=== PATIENT | female | born 1945 ===

== ENCOUNTER → 2020-03-23 15:56 | Outpatient (CLI) | payer MEDICARE, OTHER, SELFPAY ==
--- NOTE | 2020-03-23 | DI.ECHO.S_ITS ---
[facility] +---------+ : : [address] : : : : [id number] : : : : Phone: [phone]+ Echocardiogram Report + + :Name: KEYON MAYFIELD I Study Date: 03/23/2020 Height: 62 in : :[facility] Weight: 154 lb : : Gender: Female BSA: 1.7 m2 : :: 1945 Age: 74 yrs BP: 120/74 mmHg: :Reason For Study: HYPERTENSION : :Ordering Physician: CRISTIAN, : :JOSEFINA Performed By: Jena Kaplan : :Referring: JOSEFINA FOSTER L : + + Interpretation Summary The left ventricle is normal in size. The ejection fraction is estimated to be 55-60%. The right ventricle is normal in size and function. No significant valvular pathology seen. Procedure: A two-dimensional transthoracic echocardiogram with color flow and Doppler was performed. The study quality was technically adequate. There is no prior echocardiogram noted for this patient. The patient was in sinus rhythm with heart rates between 55-62 bpm during the exam. Left Ventricle: The left ventricle is normal in size. Proximal septal thickening is noted. There is no thrombus. The ejection fraction is estimated to be 55-60%. There are no focal wall motion abnormalities. Diastolic parameters suggest a relaxation abnormality of the left ventricle, consistent with probable normal filling pressures. Right Ventricle: The right ventricle is normal in size and function. Atria: Both atria are normal in size. There is no Doppler evidence for an interatrial shunt. Mitral Valve: There is mild mitral annular calcification. There is trace mitral regurgitation. Aortic Valve: The aortic valve is trileaflet. The aortic valve opens well. There is no aortic valve stenosis. There is trace aortic regurgitation. Tricuspid Valve: The tricuspid valve is normal in structure and function. There is trace tricuspid regurgitation. Pulmonary artery pressures cannot be estimated because of the lack of a measurable TR jet velocity but the IVC suggests a CVP of around 3 mmHg. Pulmonic Valve: The pulmonic valve is not well visualized. There is no pulmonic valvular regurgitation. Great Vessels: The aortic root is normal size. The ascending aorta is at the upper limits of normal in size. The IVC is of normal diameter and collapses greater than 50% with a sniff. This suggests a low right atrial pressure of 3 mm Hg. Pericardium/ Pleura There is no pericardial effusion. There is an anterior echo-free space consistent with a fat pad. There is no pleural effusion. MMode/2D Measurements & Calculations LVIDd: 4.1 cm LVOT diam: 2.0 cm LVIDs: 2.9 cm Ao root diam: 3.2 cm FS: 30.2 % asc Aorta Diam: 3.4 cm IVSd: 0.67 cm Ao Arch Diam (Prox Trans): 2.3 cm LVPWd: 0.83 cm LV fleming. diameter/BSA (cm/m^2): 2.4 LV sys. diameter/BSA (cm/m^2): 1.7 LA A2 area: 12.4 cm2 RA long axis: 4.1 cm LA A4 area: 11.8 cm2 RA area: 11.5 cm2 LA length (vol): 4.6 cm RA vol: 27.3 ml LA vol: 27.3 ml RA : 16.0 ml/m2 LA vol index: 15.9 ml/m2 IVC diam: 1.2 cm RVD1 (basal): 3.3 cm TAPSE: 1.7 cm Doppler Measurements & Calculations Ao V2 max: 110.7 cm/sec LVOT Max Kameron: 90.6 cm/sec Ao V2 mean: 78.9 cm/sec LV V1 max P.3 mmHg Ao max P.9 mmHg LV V1 VTI: 20.1 cm Ao mean P.8 mmHg SHAGUFTA(I,D): 2.7 cm2 Ao V2 VTI: 24.3 cm SHAGUFTA(V,D): 2.6 cm2 sev ratio: 0.83 SHAGUFTA indexed to BSA (cm^2/m^2): 1.6 MV E max kameron: 61.4 cm/sec PA V2 max: 66.8 cm/sec MV A max kameron: 79.0 cm/sec PA V2 mean: 41.2 cm/sec MV E/A: 0.78 PA mean P.81 mmHg Med Peak E' Kameron: 5.7 cm/sec PA pr(Accel): 25.9 mmHg E/E' med: 10.7 Lat Peak E' Kameron: 7.6 cm/sec E/E' lat: 8.1 E/e' average: 9.4 MV dec time: 0.29 sec SV(LVOT): 64.6 ml Reading Physician:05:31 PM
== END ==
PROVIDERS: Family Provider Family Medicine; PCP Family Medicine; Referring Provider Family Medicine; Visit Provider Family Medicine
DX: I10 Essential (primary) hypertension (principal)
CPT/HCPCS: 93306

== ENCOUNTER → 2020-10-14 09:49 | Outpatient (CLI) | payer MEDICARE, OTHER, SELFPAY ==
[2020-10-14 11:19] LABS: COVID19 -Nasal RAPID Negative (Negative)
== END ==
PROVIDERS: Family Provider Family Medicine; PCP Family Medicine; Visit Provider Surgery
DX: Z20.822 Contact with and (suspected) exposure to COVID-19 (principal)
CPT/HCPCS: 87635; C9803

== ENCOUNTER 2020-10-17 13:25 | Day surgery (SDC) | payer MEDICARE, OTHER, SELFPAY ==
[2020-10-14 08:22] VITALS: BMI 29.6
--- NOTE | 2020-10-14 15:51 | SUR.PREOP ---
Spoke with patients daughter Estefania regarding her mothers diabetic instructions. She stated that she was hoping for an early appt to avoid her mothers blood sugars from going low from lack of nutrition. She told me she needs to eat approx q4hrs to keep her sugars stable and to keep herself from becoming physically ill. After contacting Malgorzata with [facility], it was decided that pt should check her BS first thing in the morning. If she was low, 4 ounces of clear juice such as apple or cranberry may be taken. She should then recheck her BS in 15 mins if it is stable then do nothing more. 2 hours prior to her scheduled procedure time, she should recheck her blood sugar again. If she is low, she may take another 4 ounces of clear juice as recommended above. If at anytime her BS becomes unstable before coming to her procedure, she should call us for further instructions. Estefania understood this plan and will monitor her other closely
[2020-10-17] VITALS (8 sets, daily range): BP systolic 124–144; BP diastolic 66–75; PULSE 55–74; RESP 12–16; TEMP 36.3–36.4; O2SAT 96–99; BMI 29.6
--- NOTE | 2020-10-17 | PATH_ITS ---
[facility] Accession Number: [id number] . 01 Material submitted: . breast - LEFT BREAST CYST . 01 Diagnosis: Left Breast, Excision: Epidermal inclusion cyst with evidence of prior rupture. MRV 10/20/2020 0945 Local . 01 Electronically signed: . Sam Cheema MD, Dermatopathologist NPI- [id number] . 01 Gross description: . LEFT BREAST CYST: Received in formalin is 1 fragment of landry soft tissue measuring 1.6 x 1.1 x 1.2 cm. Tissue is inked. Specimen is sectioned and submitted in used equipment sales representative sections in 1 cassette. /HUYEN 10/18/2020 2247 Local . 01 Pathologist provided ICD-10: L72.0 . 01 CPT . 384454 Performed at: 01 [facility] [address] [place] [address], [place], [place] [id number] MD Murtaza Golden MD Phone: [phone]
[2020-10-17] MEDS: LACTATED RINGERS 1,000 ML 100 ML IV (14:21)
--- NOTE | 2020-10-17 16:13 | PM.PREOP ---
Pre-operative Note COVID-19 COVID-19 status: Negative Result date/Date tested (Pos, Neg/Pending): 10/14/20 Interval Note History & Physical reviewed/Exam performed by Physician: Yes Changes to H&P: No
[2020-10-17] MEDS: CEFAZOLIN 1 GM VIAL 2 GM IV (16:25)
--- NOTE | 2020-10-17 16:39 | SUR.OPER ---
Supine on padded OR bed, head on pillow, arms secured on padded arm boards at <90 degrees abduction, legs uncrossed, safety belt at thigh, tape over blanket over lower legs.
[2020-10-17] MEDS: BUPIVACAINE 0.5% W/ EPI (PF) 30 ML VIAL INJ (16:46)
--- NOTE | 2020-10-17 17:13 | PM.OP.1 ---
Operative Date/Time/Diagnoses Date of procedure: 10/17/20 Time of procedure: 17:13 Pre-op diagnosis: left breast cyst Post-op diagnosis: same Procedure & Clinicians Procedure: Excision of left breast cyst Same procedure as scheduled: Yes Indications: Symptomatic left breast cyst Surgeon: Candy Clemons Anesthesia Type: General Operative Notes Findings: Left breast cyst consistent with sebaceous cyst Specimen(s): other (breast cyst) Estimated Blood Loss (mL): 1 Procedure in detail: The patient was brought into the OR and placed supine on the OR table. Sequential compression devices were placed on both legs and turned on. General anesthesia was induced and the patient was intubated by the anesthesiologist. Appropriate perioperative antibiotics were given. The left chest and axilla were prepped and draped in sterile fashion. Surgical time out was performed. Local anesthetic was infiltrated into the skin, and a 6cm modified elliptical incision was made encompasing the involved skin. Dissection was carried down through the dermis and the cyst capsule was dissected out. The involved skin was debrided as it was not well supplied vascularly. About a 2mm x 4mm portion of skin was removed. The specimen was passed off the table for pathology. The wound was irrigated and additional local anesthetic was injected for a total of 15mL's for the case using 0.5% Marcaine with epi. The skin was closed with interrupted 3-0 Vicryl, and subcuticular 4-0 Monocryl, and sealed with dermabond. The patient was then awakened from anesthesia and extubated. Needle sponge and instrument counts were correct x 2. A breast binder was placed on the patient with extra padding over the breast wound using 4x4 gauze. The patient was transferred to the PACU in stable condition. Complications: none Post-operative Condition: stable Disposition: PACU
== END 2020-10-17 18:02 | disposition home or self-care (01) ==
PROVIDERS: Family Provider Family Medicine; PCP Family Medicine; Referring Provider Surgery; Visit Provider Surgery
PROC: (CPT 19301; principal; 2020-10-17 14:45)
DX: L72.0 Epidermal cyst (principal); Z86.73 Personal history of transient ischemic attack (TIA), and cerebral infarction without residual deficits; E11.9 Type 2 diabetes mellitus without complications; Z79.84 Long term (current) use of oral hypoglycemic drugs
CPT/HCPCS: 19120; 82962; J0690; J1100; J2405; J2704; J3010

== ENCOUNTER → 2022-02-28 12:57 | Outpatient (CLI) | payer MEDICARE, OTHER, SELFPAY ==
--- NOTE | 2022-02-28 | DI.RAD.S_ITS ---
PROCEDURE: XR KNEE RT 3V INDICATIONS: pain in right knee TECHNIQUE: 3 views of the knee were acquired. COMPARISON: None. FINDINGS: Bones: No fractures or dislocations. Btmo-jy-mgvnepkn tricompartmental osteoarthritis is seen more prominent in medial femoral tibial compartment with joint space narrowing, subchondral sclerosis and marginal osteophyte formation. No suspicious bony lesions. Soft tissues: Small to moderate suprapatellar joint effusion is seen. No suspicious soft tissue calcifications. IMPRESSION: Lkih-br-xpuquesu tricompartmental osteoarthritis more prominent in medial femoral tibial compartment. No fracture or dislocation. Small to moderate joint effusion. Dictated by: Kev Jane M.D. on 02/28/2022 at 15:08 Approved by: Kev Jane M.D. on 02/28/2022 at 15:09
== END ==
PROVIDERS: Family Provider Family Medicine; PCP Family Medicine; Referring Provider Family Medicine; Visit Provider Family Medicine
DX: M25.561 Pain in right knee (principal); M17.11 Unilateral primary osteoarthritis, right knee; M25.461 Effusion, right knee
CPT/HCPCS: 73562

== ENCOUNTER → 2022-06-22 12:44 | Outpatient (CLI) | payer MEDICARE, OTHER, SELFPAY ==
--- NOTE | 2022-06-22 | DI.MRI.S_ITS ---
PROCEDURE: MR KNEE RT WO CON INDICATIONS: Unilateral primary osteoarthritis, right knee TECHNIQUE: Noncontrast sagittal PD fast spin echo and T2 fast spin echo with fat saturation, sagittal 3-D FLASH with fat saturation; coronal T1 spin echo and PD fast spin echo with fat saturation, and axial PD fast spin echo with fat saturation through the knee. COMPARISON: [facility], CR, XR KNEE RT 3V, 02/28/2022, 13:03. FINDINGS: Image quality: Excellent. Anterior Cruciate Ligament: Intact. Posterior Cruciate Ligament: Intact. Medial Collateral Ligament: Intact. Lateral Collateral Ligament: Intact. Medial Meniscus: Intact. Lateral Meniscus: There is horizontal oblique tearing of the body of the lateral meniscus extending to the inner third of the tibial articular surface and free edge margin. A small lateral parameniscal cyst measures up to 9 x 3 x 8 mm. Medial and Lateral Tendons: The semimembranosus tendon insertions and meniscocapsular junction appear intact. Visualized portions of the pes anserinus tendons appear normal. No abnormal bursal fluid. The long and short heads of the biceps femoris tendon appear intact. The popliteus tendon appears intact. No signs of posterolateral corner injury. Iliotibial band appears normal. Anterior Structures: Patella pavel. The distal quadriceps tendon is intact. No patellar subluxation. Moderate edema is seen at the superolateral aspect of Hoffa's fat pad. No femoral trochlear dysplasia or ventral trochlear prominence. Bones: No acute trabecular bone injury or fracture. Medial Femorotibial Cartilage: Mild partial-thickness cartilage thinning is seen in the weight-bearing portion of the medial femorotibial compartment. Lateral Femorotibial Cartilage: High-grade partial-thickness cartilage irregularity is seen in the weight-bearing portion of the lateral femorotibial compartment with marginal osteophyte formation. Patellofemoral Cartilage: Moderate partial-thickness cartilage irregularity is seen at the median ridge of the patella. There is at least high-grade partial-thickness cartilage loss at the trochlear groove. Soft Tissues: There is a small joint effusion. A small medial popliteal cyst is seen. There is trace fluid tracking along the popliteus tendon sheath. The musculature surrounding the knee is normal in bulk. IMPRESSION: 1. Horizontal oblique tear of the body of the lateral meniscus extending to the inner third of the tibial articular surface and the free edge margin. A small 9 mm parameniscal cyst is noted. 2. 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 There is grade 2-3 chondromalacia in the anterior compartment and mild grade 2 cartilage thinning in the medial compartment. 3. No acute trabecular bone injury. Cruciate and collateral ligaments are intact. 4. Patella pavel. Moderate edema at the superolateral aspect of Hoffa's fat pad can be seen in the setting of lateral femoral condyle-patellar tendon friction syndrome. 5. Small joint effusion. Small medial popliteal cyst. Approved by: Manpreet De Guzman M.D. on 06/22/2022 at 15:11
== END ==
PROVIDERS: Family Provider Family Medicine; PCP Family Medicine; Referring Provider Orthopaedic Surgery; Visit Provider Orthopaedic Surgery
DX: S83.281A Other tear of lateral meniscus, current injury, right knee, initial encounter (principal); M17.11 Unilateral primary osteoarthritis, right knee; M94.261 Chondromalacia, right knee; M25.461 Effusion, right knee; M71.21 Synovial cyst of popliteal space [Baker], right knee; M22.8X1 Other disorders of patella, right knee
CPT/HCPCS: 73721

== ENCOUNTER 2022-08-27 12:01 | Emergency (ER) | payer MEDICARE, OTHER, SELFPAY ==
[2022-08-27] VITALS (11 sets, daily range): BP systolic 123–141; BP diastolic 61–70; PULSE 58–68; RESP 15–24; TEMP 36.4; O2SAT 95–98; BMI 29.0
--- NOTE | 2022-08-27 12:32 | DI.RAD.S_ITS ---
PROCEDURE: XR CHEST 1V INDICATIONS: Possible stroke TECHNIQUE: One view of the chest was acquired. COMPARISON: None. FINDINGS: Surgical changes and devices: None. Lungs and pleura: Eventration of the right hemidiaphragm. Lung volumes are slightly diminished. Minimal streaky bibasilar opacities favored to represent atelectasis. No focal consolidation. No pneumothorax or pleural effusion. Mediastinum: Mediastinal contours appear normal. Heart size is normal. Bones and chest wall: No suspicious bony lesions. Overlying soft tissues appear unremarkable. IMPRESSION: Mildly diminished lung volumes with streaky bibasilar opacities which are favored to represent atelectasis. No focal consolidations. Otherwise, no acute cardiopulmonary abnormalities. Dictated by: Ra Rosenberg M.D. on 08/27/2022 at 13:21 Approved by: Ra Rosenberg M.D. on 08/27/2022 at 13:24
--- NOTE | 2022-08-27 12:32 | DI.CT.S_ITS ---
PROCEDURE: CT STROKE INDICATIONS: Positive BE-FAST, Stroke symptoms TECHNIQUE: Noncontrast 4.5 mm thick angled axial sections acquired from the foramen magnum to the vertex, with coronal reformats. For radiation dose reduction, the following was used: automated exposure control, adjustment of mA and/or kV according to patient size. COMPARISON: None. FINDINGS: Image quality: Good CSF spaces: There is dilation of the left temporal horn and occipital horn adjacent to encephalomalacia. Volume: Vascular calcifications. Periventricular white matter disease is commonly seen with chronic microangiopathy. Volume loss is present. These findings are efpu-pz-fhpkydcm Brain: Left posterior hemispheric encephalomalacia. No acute hematoma. Craniofacial structures: No displaced fracture. Sinuses are clear. Orbits are intact. IMPRESSION: No acute hemorrhage. Suspected old infarct or other injury to the left occipital and parietal regions. Consider MRI and CTA to further evaluate for infarct if necessary. Report called at timestamp below to ED. Dictated by: Simon Cardozo M.D. on 08/27/2022 at 13:03 Approved by: Simon Cardozo M.D. on 08/27/2022 at 13:06
--- NOTE | 2022-08-27 12:39 | DI.CT.S_ITS ---
PROCEDURE: CT ANGIO HEAD AND NECK INDICATIONS: ? stroke symptoms. TECHNIQUE: Noncontrast images were performed earlier in the day and not repeated. After the administration of intravenous contrast, 1 mm thick sections acquired from just above the aortic arch through the [place]. Post-contrast 4.5 mm thick sections then re-acquired from the foramen magnum to the vertex. 3-dimensional hglhuna-sjnermkot-imefhrkovk (MIP) and/or volume rendering reformats were acquired of the central intracranial vasculature and neck separately. For radiation dose reduction, the following was used: automated exposure control, adjustment of mA and/or kV according to patient size. COMPARISON: [facility], CR, XR CHEST 1V, 08/27/2022, 12:42. [facility], CT, CT STROKE, 08/27/2022, 12:43. FINDINGS: Image quality: Excellent. BRAIN: CSF spaces: Ventricles are normal in size and shape. Basal cisterns are patent. No extra-axial fluid collections. Brain: No midline shift. No intracranial bleeds or masses. Griffin-white matter interface appears intact. A broad, remote left MCA infarction can be seen. No abnormal enhancement can be seen within this region. Skull and face: Calvarium and facial bones appear intact, without suspicious lesions. Orbits appear normal. Sinuses: Sinuses and mastoids are clear. HEAD CT ANGIOGRAPHY: Anterior circulation: Intracranial internal carotid arteries are normal in size and flow. The flow within the paired anterior cerebral arteries is normal and symmetric. The flow within the middle cerebral arteries is within normal limits, given the prior posterior left MCA infarction. The anterior communicating artery is seen. No aneurysms are seen. Posterior circulation: Note is made of bilateral type origins of the posterior cerebral arteries, with an associated diminutive basilar artery. The flow within the posterior cerebral arteries is normal and symmetric. The distal vertebral arteries are overall small in size, yet otherwise unremarkable. No aneurysms are seen. NECK CT ANGIOGRAPHY: Carotid system: The origins of the common carotid arteries appear patent. The common carotid arteries demonstrate normal caliber and courses. The bifurcation regions are both widely patent. The internal carotid arteries demonstrate normal calibers and courses. Posterior circulation: The origins of the vertebral arteries both appear widely patent. The more superior extracranial portions of both vertebral arteries also demonstrate normal courses and calibers. The left vertebral artery is dominant to the right. Soft tissues: Visualized neck soft tissues demonstrate no suspicious abnormalities. Generalized irregularity can be seen of the thyroid. Bones: No suspicious bony lesions. Visualized cervical spine appears normally aligned. Moderate cervical spine degenerative change can be seen. A T2 vertebral body hemangioma is incidentally noted, as on series 8, image 105 IMPRESSION: No significant intracranial arterial abnormality is seen. Within the arteries of the neck, no hemodynamically significant stenosis can be seen. 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 Additional findings: Nwtido-ue-Ihovrx developmental anomalies Moderate cervical spine degenerative change T2 vertebral body hemangioma, benign Thyroid irregularity, without lesion requiring follow-up Any quantitative measurements of stenosis were performed using NASCET criteria. Dictated by: Julius Corona M.D. on 08/27/2022 at 12:15 Approved by: Julius Corona M.D. on 08/27/2022 at 12:20
[2022-08-27 12:54] LABS: Add Manual Diff / Slide Review NO; Basophils Absolute Auto 0 /uL (0-100); Basophils Percent Auto 0.6 % (0-2); Eosinophils Absolute Auto 100 /uL (0-450); Eosinophils Percent Auto 1.2 % (2-4); Hematocrit 42.7 % (36-46); Hemoglobin 14.3 g/dL (12.0-16.0); Lymphocytes Absolute Auto 2000 /uL (1100-4500); Lymphocytes Percent Auto 38.4 % (25-40); Mean Corpuscular HGB Conc 33.6 % (30-36); Mean Corpuscular Hemoglobin 30.3 PG (26-34); Mean Corpuscular Volume 90.3 fL (80-100); Monocytes Absolute Auto 400 /uL (0-900); Monocytes Percent Auto 6.6 % (3-14); Neutrophils Absolute Auto 2800 /uL (1500-7000); Neutrophils Percent Auto 53.2 % (50-75); Platelet Count 214 X10^3/uL (150-400); Red Blood Cell Count 4.72 X10^6/uL (4.0-5.2); Red Cell Distribution Width 13.9 % (11.6-14.8); White Blood Cell Count 5.3 X10^3/uL (4.5-11.0)
[2022-08-27 13:04] LABS: Prothrombin Time 11.2 SECONDS (10.1-12.7)
[2022-08-27 13:07] LABS: PTT Partial Thromboplastin Tim 29 SECONDS (26-36)
[2022-08-27 13:09] LABS: Alanine Aminotransferase 23 IU/L (<35); Albumin 4.1 g/dL (3.5-5.0); Albumin Globulin Ratio 1.2 (1.0-2.8); Alkaline Phosphatase 89 U/L (38-126); Aspartate Aminotransferase 30 IU/L (14-36); BUN Creatinine Ratio 15.6 (6-22); Bilirubin Total 0.6 mg/dL (0.2-1.3); Blood Urea Nitrogen 12 mg/dL (7-17); Carbon Dioxide 30 mmol/L (22-32); Chloride 105 mmol/L (98-107); Creatine Kinase 52 U/L (30-135); Estimated Glomerular Filt Rate > 60 mL/min (>60); Globulin 3.5 g/dL (1.7-4.1); Glucose 126 mg/dL (80-110); HEMOLYSIS < 15 (0-50); Magnesium 1.9 mg/dL (1.6-2.3); Potassium 3.9 mmol/L (3.4-5.1); Sodium 140 mmol/L (137-145); Total Protein 7.6 g/dL (6.3-8.2)
[2022-08-27 13:21] LABS: Troponin I < 0.012 ng/mL (0.01-0.034)
--- NOTE | 2022-08-27 13:52 | ED.NEUROSD ---
HPI - Neuro Symptoms/Deficit General Chief Complaint: Neuro Symptoms/Deficit Stated Complaint: pressure in head,memory loss,prior strokesx2 Time Seen by Provider: 08/27/22 12:39 Source: patient, family and old records reviewed Mode of arrival: Family Vehicle Limitations: no limitations History of Present Illness HPI Narrative: This is a 76-year-old female with prior stroke with persistent hemianopsia, diabetes, dementia, prior seizure, dyslipidemia, diabetes type 2 on aspirin 81 mg daily. Patient states that yesterday evening she bent over time she is pants on felt dizzy had some pressure in the left ear side of her head and had some left vision blurring. Patient states that the had pressure has gone away the blurred vision still present. She still has vision but just sort of blurry. She denies any eye pain. Patient states no syncope. She states she was seen at [facility] emergency department had a head CT and it was repeated they were told there might be calcium versus blood but it was stable and discharged home. She states she is noticed little bit increased weakness of her left lower extremity, she states she does have this at baseline from her prior stroke. She denies any numbness or tingling. No weakness elsewhere in her extremities, no speech changes, no chest pain, no shortness of breath, no nausea or vomiting, no diarrhea constipation or urinary symptoms. Patient aspirin daily no other anticoagulants. She states her only surgical intervention was benign cyst removed from her left breast no known drug allergies. No tobacco, alcohol or illicit. Dr. Gibbs is her primary care. They had gone to the primary care office today to set up follow-up and were told by the assistant front end manager to come to the ER. On Anticoagulants: No (81mg aspirin) Related Data Home Medications Medication Instructions Recorded Confirmed aspirin 81 mg tablet,delayed 81 mg PO DAILY 10/13/20 11/02/20 release (Adult Aspirin Regimen) cephalexin 500 mg capsule 500 mg PO BID 10/13/20 11/02/20 donepezil 5 mg tablet 5 mg PO DAILY 10/13/20 11/02/20 empagliflozin 10 mg tablet 10 mg PO DAILY 10/13/20 11/02/20 (Jardiance) levetiracetam 750 mg tablet 750 mg PO BID 10/13/20 11/02/20 levocetirizine 5 mg tablet (Xyzal) 5 mg PO DAILY 10/13/20 11/02/20 losartan 25 mg tablet 25 mg PO DAILY 10/13/20 11/02/20 pravastatin 40 mg tablet 40 mg PO DAILY 10/13/20 11/02/20 sitagliptin phos 100 mg-metformin 1 tab PO DAILY 10/13/20 11/02/20 ER 1,000 mg tablet,extend rel 24h mp (Janumet XR) Allergies Allergy/AdvReac Type Severity Reaction Status Date / Time No Known Drug Allergies Allergy Unverified 11/02/20 11:07 Review of Systems Review of Systems ROS Unobtainable: All systems reviewed & are unremarkable except as noted in HPI and below Hematologic/Lymphatic On Anticoagulants: No (81mg aspirin) Patient History Medical History Brain aneurysm Diabetes Stroke Family History Mother Heart disease Father Heart disease Stroke Brother Diabetes mellitus Sister Diabetes mellitus Gallstones Social History marital status: unknown household members: family Smoking Status: Never smoker alcohol intake: never substance use type: does not use Smoking Status: Never smoker Substance Use Type: does not use Exam Narrative Exam Narrative: GEN: well nourished, well appearing female, alert and oriented x 3, patient appears to be in mild distress. HEENT: Atraumatic, pupils are equal round reactive to light, extraocular movements are intact, no nystagmus, right hemianopsia bilaterally, nares are clear, TMs are clear with no fluid, there is no conjunctival pallor. Throat is clear without any exudates, erythema, tonsillar enlargement or uvular deviation HEART: Regular rate and rhythm without murmur, clicks, rubs. No carotid bruits, pulses are equal in upper and lower extremities LUNGS:Lungs clear to auscultation, no wheezes, rales, crackles, chest moves symmetrically ABD:bowel sounds normal, soft, non-tender, no guarding, rebound, rigidity, no masses noted, no hepatosplenomegaly :No CVA tenderness MSCL: Non-tender, no muscle atrophy, muscles strength 5/5 upper and lower extremities, patient has some slight decreased movement of the left lower extremity., full range of motion, normal gait NEURO:CN 2-12 intact, sensation normal. finger nose finger test normal, heel little test normal with right leg to little, little bit difficulty with left leg to little. SKIN: No Rash, erythema or other skin changes Initial Vital Signs Initial Vital Signs: Vital Signs Temperature 97.6 F 08/27/22 12:16 Pulse Rate 68 08/27/22 12:16 Respiratory Rate 16 08/27/22 12:16 Blood Pressure 141/63 H 08/27/22 12:16 Pulse Oximetry 97 08/27/22 12:16 Oxygen Delivery Method Room Air 08/27/22 12:16 Scores NIH Stroke Scale Level of Conciousness: Alert, keenly responsive Ask month/age: Answers both questions correctly. Open/close eyes, close hand: Performs both tasks correctly Best gaze horizontal: Normal Visual gomez: Partial hemianopia (Right bilateral) Facial palsy: Normal symetrical movement Left arm drift: No drift for full 10 sec Right arm drift: No drift for full 10 sec Left leg drift: Drifts down, not to bed Right leg drift: No drift for full 5 sec Limb ataxia: Present in one limb Sensory on face/arms/legs: Normal, no sensory loss Best language: No aphasia, normal Dysarthria: Normal Extinction or inattention: No abnormality Total NIH Stroke scale score: 3 Course Orders Ordered: ED Orders 08/27/22 12:32 CT Stroke Stat XR chest 1V Stat EKG-12 Lead Stat 08/27/22 12:38 Complete Blood Count AUTO DIFF Stat Comprehensive Metabolic Panel Stat Magnesium Stat PTT Partial Thromboplastin Joe Stat Prothrombin Time INR Stat Troponin & CK Cardiac Panel Stat 08/27/22 12:39 CT angio head and neck Stat 08/27/22 14:14 COVID19 - ADMIT (COMPUTER SYSTEMS DESIGNER swab/PCR) Stat 08/27/22 14:26 MR head/brain wo con Stat 08/27/22 15:38 Urine Microscopic Stat 08/27/22 16:02 Urine Drug Screen, Rapid Stat Discontinued Medications Ondansetron HCl (Ondansetron 4 Mg Odt) 4 mg SL NOW PRN PRN Reason: Nausea And Vomiting Ondansetron HCl (Ondansetron 4 Mg/2 Ml Inj) 4 mg IV NOW PRN PRN Reason: Nausea And Vomiting Vital Signs Vital signs: Vital Signs - 8 hr 08/27/22 12:16 08/27/22 13:36 08/27/22 13:53 Temperature 97.6 F Pulse Rate 68 59 L 58 L Respiratory Rate 16 18 18 Blood Pressure 141/63 H Pulse Oximetry 97 97 97 Oxygen Delivery Method Room Air 08/27/22 13:53 08/27/22 14:00 08/27/22 14:00 Temperature Pulse Rate 60 Respiratory Rate 23 Blood Pressure 123/64 140/70 Pulse Oximetry 98 Oxygen Delivery Method 08/27/22 14:30 08/27/22 14:30 08/27/22 15:00 Temperature Pulse Rate 60 Respiratory Rate 22 Blood Pressure 132/65 132/67 Pulse Oximetry 96 Oxygen Delivery Method 08/27/22 15:00 08/27/22 16:28 08/27/22 16:24 Temperature Pulse Rate 59 L 62 59 L Respiratory Rate 22 Blood Pressure 125/63 Pulse Oximetry 97 Oxygen Delivery Method 08/27/22 16:26 08/27/22 16:26 08/27/22 16:30 Temperature Pulse Rate 58 L Respiratory Rate 24 Blood Pressure 125/63 126/67 Pulse Oximetry 97 Oxygen Delivery Method 08/27/22 16:30 08/27/22 17:00 08/27/22 17:00 Temperature Pulse Rate 59 L 62 Respiratory Rate 15 16 Blood Pressure 125/61 Pulse Oximetry 95 95 Oxygen Delivery Method MDM - Neuro Symptoms/Deficit Lab Data 08/27/22 12:38 08/27/22 12:38 Labs: Lab Results 08/27/22 08/27/22 08/27/22 Range/Units 12:38 12:38 12:38 WBC 5.3 (4.5-11.0) X10^3/uL RBC 4.72 (4.0-5.2) X10^6/uL Hgb 14.3 (12.0-16.0) g/dL Hct 42.7 (36-46) % MCV 90.3 (80-100) fL MCH 30.3 (26-34) PG MCHC 33.6 (30-36) % RDW 13.9 (11.6-14.8) % Plt Count 214 (150-400) X10^3/uL Neut % (Auto) 53.2 (50-75) % Lymph % (Auto) 38.4 (25-40) % [place] % (Auto) 6.6 (3-14) % Eos % (Auto) 1.2 L (2-4) % Baso % (Auto) 0.6 (0-2) % Neut # (Auto) 2800 (1255-0519) /uL Lymph # (Auto) 2000 (0123-5018) /uL [place] # (Auto) 400 (0-900) /uL Eos # (Auto) 100 (0-450) /uL Baso # (Auto) 0 (0-100) /uL PT 11.2 (10.1-12.7) SECONDS INR 1.0 (0.9-1.3) APTT 29 (26-36) SECONDS Sodium 140 (137-145) mmol/L Potassium 3.9 (3.4-5.1) mmol/L Chloride 105 (98-107) mmol/L Carbon Dioxide 30 (22-32) mmol/L BUN 12 (7-17) mg/dL Creatinine 0.77 (0.52-1.04) mg/dL Estimated GFR > 60 (>60) mL/min BUN/Creatinine Ratio 15.6 (6-22) Glucose 126 H (80-110) mg/dL Calcium 9.0 (8.4-10.2) mg/dL Magnesium 1.9 (1.6-2.3) mg/dL Total Bilirubin 0.6 (0.2-1.3) mg/dL AST 30 (14-36) IU/L ALT 23 (<35) IU/L Alkaline Phosphatase 89 (38-126) U/L Total Creatine Kinase 52 (30-135) U/L CK-MB (CK-2) TNP CK-MB (CK-2) Rel Index TNP Troponin I < 0.012 (0.01-0.034) ng/mL Total Protein 7.6 (6.3-8.2) g/dL Albumin 4.1 (3.5-5.0) g/dL Globulin 3.5 (1.7-4.1) g/dL Albumin/Globulin Ratio 1.2 (1.0-2.8) Urine RBC (0-5/HPF) Urine WBC (0-5/HPF) Ur Squamous Epith Cells (0-5/HPF) Urine Bacteria (None) Ur Culture Indicated? U Opiates 300ng/mL cut (Negative) Ur Oxycodone Screen (Negative) Urine Methadone Screen (Negative) Ur Barbiturates Screen (Negative) U Tricyclic Antidepress (Negative) Ur Phencyclidine Scrn (Negative) Ur Amphetamines Screen (Negative) U Methamphetamines Scrn (Negative) Ur MDMA Scrn (Ecstasy) (Negative) U Benzodiazepines Scrn (Negative) Urine Cocaine Screen (Negative) U Marijuana (THC) Screen (Negative) SARS-CoV-2 (PCR) (Negative) 08/27/22 08/27/22 08/27/22 Range/Units 14:14 15:38 16:02 WBC (4.5-11.0) X10^3/uL RBC (4.0-5.2) X10^6/uL Hgb (12.0-16.0) g/dL Hct (36-46) % MCV (80-100) fL MCH (26-34) PG MCHC (30-36) % RDW (11.6-14.8) % Plt Count (150-400) X10^3/uL Neut % (Auto) (50-75) % Lymph % (Auto) (25-40) % [place] % (Auto) (3-14) % Eos % (Auto) (2-4) % Baso % (Auto) (0-2) % Neut # (Auto) (4814-6743) /uL Lymph # (Auto) (3180-9872) /uL [place] # (Auto) (0-900) /uL Eos # (Auto) (0-450) /uL Baso # (Auto) (0-100) /uL PT (10.1-12.7) SECONDS INR (0.9-1.3) APTT (26-36) SECONDS Sodium (137-145) mmol/L Potassium (3.4-5.1) mmol/L Chloride (98-107) mmol/L Carbon Dioxide (22-32) mmol/L BUN (7-17) mg/dL Creatinine (0.52-1.04) mg/dL Estimated GFR (>60) mL/min BUN/Creatinine Ratio (6-22) Glucose (80-110) mg/dL Calcium (8.4-10.2) mg/dL Magnesium (1.6-2.3) mg/dL Total Bilirubin (0.2-1.3) mg/dL AST (14-36) IU/L ALT (<35) IU/L Alkaline Phosphatase (38-126) U/L Total Creatine Kinase (30-135) U/L CK-MB (CK-2) CK-MB (CK-2) Rel Index Troponin I (0.01-0.034) ng/mL Total Protein (6.3-8.2) g/dL Albumin (3.5-5.0) g/dL Globulin (1.7-4.1) g/dL Albumin/Globulin Ratio (1.0-2.8) Urine RBC None seen (0-5/HPF) Urine WBC None seen (0-5/HPF) Ur Squamous Epith Cells None seen (0-5/HPF) Urine Bacteria None seen (None) Ur Culture Indicated? Cult not indicated U Opiates 300ng/mL cut Negative (Negative) Ur Oxycodone Screen Negative (Negative) Urine Methadone Screen Negative (Negative) Ur Barbiturates Screen Negative (Negative) U Tricyclic Antidepress Negative (Negative) Ur Phencyclidine Scrn Negative (Negative) Ur Amphetamines Screen Negative (Negative) U Methamphetamines Scrn Negative (Negative) Ur MDMA Scrn (Ecstasy) Negative (Negative) U Benzodiazepines Scrn Negative (Negative) Urine Cocaine Screen Negative (Negative) U Marijuana (THC) Screen Negative (Negative) SARS-CoV-2 (PCR) Negative (Negative) Urine Dip Bedside Urine Glucose 1000 mg/dl Bedside Urine Bilirubin - Negative Bedside Urine Ketone - Negative Urine Specific [place] 1.010 Bedside Urine Occult Blood +/- Bedside Urine pH 7.5 Bedside Urine Protein - Negative Bedside Urine Urobilinogen - Negative Bedside Urine Nitrite - Negative Bedside Urine Leukocytes - Negative Esterase Imaging Data CT scan - head: Radiologist's Impression: [address] [address] [address] Scan Report Signed Patient: Rafia Means I MR#: [id number] : 1945 Acct:[id number] Age/Sex: 76 / F Date of Service: 08/27/22 Loc: ED Accession Number: [id number] ?? Procedure: CT Stroke Ordering Provider: Robina West D.O. PROCEDURE:? CT STROKE ? INDICATIONS:? Positive BE-FAST, Stroke symptoms ? TECHNIQUE:? Noncontrast 4.5 mm thick angled axial sections acquired from the foramen magnum to the vertex, with coronal reformats.? For radiation dose reduction, the following was used:? automated exposure control, adjustment of mA and/or kV according to patient size.? ? COMPARISON:? None. ? FINDINGS:? Image quality:? Good ? CSF spaces:? There is dilation of the left temporal horn and occipital horn adjacent to encephalomalacia. Volume:? Vascular calcifications. Periventricular white matter disease is commonly seen with chronic microangiopathy. Volume loss is present. These findings are [id number]-[id number] ? ? Brain:? Left posterior hemispheric encephalomalacia.? No acute hematoma. ? Craniofacial structures: No displaced fracture. Sinuses are clear. Orbits are intact. ? IMPRESSION:? No acute hemorrhage.? Suspected old infarct or other injury to the left occipital and parietal regions.? Consider MRI and CTA to further evaluate for infarct if necessary. Report called at timestamp below to ED. ? Dictated by: Simon Cardozo M.D. on 08/27/2022 at 13:03 ? ? Approved by: Simon Cardozo M.D. on 08/27/2022 at 13:06?? CTA - brain/neck: Radiologist's Impression: Rafia Means I??76??F??1945 ? Allergy/Adv: No Known Drug Allergies Close Head/Neck CTA (Signed) Julius Coorna - 08/27/22 Chest X-Ray (Signed) Ra Rosenberg - 08/27/[address] (Signed) Simon Cardozo - 08/27/22 Knee MRI (Signed) Manpreet De Guzman - 06/22/22 Knee X-Ray (Signed) Kev Jane - 02/28/22 Echocardiogram Ultrasound (Signed) Joey Alicia - 03/23/20 Launch?[place] [id number] CT Scan Report Signed Patient: Rafia Means I MR#: [id number] : 1945 Acct:[id number] Age/Sex: 76 / F Date of Service: 08/27/22 Loc: ED Accession Number: [id number] ?? Procedure: CT angio head and neck Ordering Provider: Mank,Robina C D.O. PROCEDURE:? CT ANGIO HEAD AND NECK ? INDICATIONS:? ? stroke symptoms. ? TECHNIQUE:? Noncontrast images were performed earlier in the day and not repeated.? ? After the administration of intravenous contrast, 1 mm thick sections acquired from just above the aortic arch through the [place] of [place].? Post-contrast 4.5 mm thick sections then re-acquired from the foramen magnum to the vertex.? 3-dimensional ijbymek-hjscqmjrp-jdijsfvpnn (MIP) and/or volume rendering reformats were acquired of the central intracranial vasculature and neck separately. For radiation dose reduction, the following was used:? automated exposure control, adjustment of mA and/or kV according to patient size.? ? COMPARISON:? [facility], CR, XR CHEST 1V, 08/27/2022, 12:42.? [facility], CT, CT STROKE, 08/27/2022, 12:43. ? FINDINGS:? Image quality:? Excellent.? ? BRAIN:? CSF spaces:? Ventricles are normal in size and shape.? Basal cisterns are patent.? No extra-axial fluid collections.? ? Brain:? No midline shift.? No intracranial bleeds or masses.? Griffin-white matter interface appears intact.? A broad, remote left MCA infarction can be seen.? No abnormal enhancement can be seen within this region. ? Skull and face:? Calvarium and facial bones appear intact, without suspicious lesions.? Orbits appear normal.? ? Sinuses:? Sinuses and mastoids are clear.? ? HEAD CT ANGIOGRAPHY:? Anterior circulation:? Intracranial internal carotid arteries are normal in size and flow.? The flow within the paired anterior cerebral arteries is normal and symmetric.? The flow within the middle cerebral arteries is within normal limits, given the prior posterior left MCA infarction.? The anterior communicating artery is seen.? No aneurysms are seen.? ? Posterior circulation:? Note is made of bilateral type origins of the posterior cerebral arteries, with an associated diminutive basilar artery.? The flow within the posterior cerebral arteries is normal and symmetric.? The distal vertebral arteries are overall small in size, yet otherwise unremarkable.? No aneurysms are seen.? ? NECK CT ANGIOGRAPHY:? Carotid system:? The origins of the common carotid arteries appear patent.? The common carotid arteries demonstrate normal caliber and courses.? The bifurcation regions are both widely patent.? The internal carotid arteries demonstrate normal calibers and courses.? ? Posterior circulation:? The origins of the vertebral arteries both appear widely patent.? The more superior extracranial portions of both vertebral arteries also demonstrate normal courses and calibers.? The left vertebral artery is dominant to the right. ? Soft tissues:? Visualized neck soft tissues demonstrate no suspicious abnormalities.? Generalized irregularity can be seen of the thyroid. ? Bones:? No suspicious bony lesions.? Visualized cervical spine appears normally aligned.? Moderate cervical spine degenerative change can be seen.? A T2 vertebral body hemangioma is incidentally noted, as on series 8, image 105 ? ? IMPRESSION:? No significant intracranial arterial abnormality is seen.? ? Within the arteries of the neck, no hemodynamically significant stenosis can be seen. ? ? 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 ? ? Additional findings:? Jwbheh-no-Xapogc developmental anomalies Moderate cervical spine degenerative change T2 vertebral body hemangioma, benign Thyroid irregularity, without lesion requiring follow-up ? Any quantitative measurements of stenosis were performed using NASCET criteria.? ? ? Dictated by: Julius Corona M.D. on 08/27/2022 at 12:15 ? ? Approved by: Julius Corona M.D. on 08/27/2022 at 12:20?? Chest x-ray: Radiologist's Impression: [place] [address] XRay Report Signed Patient: Rafia Means I MR#: [id number] : 1945 Acct:[id number] Age/Sex: 76 / F Date of Service: 08/27/22 Loc: ED Accession Number: [id number] ?? Procedure: XR chest 1V Ordering Provider: Robina West D.O. PROCEDURE:? XR CHEST 1V ? INDICATIONS:? Possible stroke ? TECHNIQUE:? One view of the chest was acquired.? ? COMPARISON:? None. ? FINDINGS:? ? Surgical changes and devices:? None.? ? Lungs and pleura:? Eventration of the right hemidiaphragm.? Lung volumes are slightly diminished.? Minimal streaky bibasilar opacities favored to represent atelectasis.? No focal consolidation.? No pneumothorax or pleural effusion. ? Mediastinum:? Mediastinal contours appear normal.? Heart size is normal.? ? Bones and chest wall:? No suspicious bony lesions.? Overlying soft tissues appear unremarkable.? ? IMPRESSION:? Mildly diminished lung volumes with streaky bibasilar opacities which are favored to represent atelectasis. No focal consolidations.? Otherwise, no acute cardiopulmonary abnormalities.? ? Dictated by: Ra Rosenberg M.D. on 08/27/2022 at 13:21 ? ? Approved by: Ra Rosenberg M.D. on 08/27/2022 at 13:24?? MRI brain: Radiologist's Impression: Rafia Means I??76??F??1945 ? Allergy/Adv: No Known Drug Allergies Close Brain MRI (Signed) [place] - 08/27/22 Head/Neck CTA (Signed) Silvio Coronasse - 08/27/22 Chest X-Ray (Signed) Ra Rosenberg - 08/27/[address] (Signed) Simon Cardozo - 08/27/22 Knee MRI (Signed) Manpreet De Guzman - 06/22/22 Knee X-Ray (Signed) Kev Jane - 02/28/22 Echocardiogram Ultrasound (Signed) Joey Alicia - 03/23/20 Launch?[place] [address] Magnetic Resonance Report Signed Patient: Rafia Means I MR#: [id number] : 1945 Acct:[id number] Age/Sex: 76 / F Date of Service: 08/27/22 Loc: ED Accession Number: [id number] ?? Procedure: MR head/brain wo con Ordering Provider: Robina West D.O. PROCEDURE:? MR HEAD/BRAIN WO CON ? INDICATIONS:? ? cva, blurred vision, increased leg weakness x 24 hours ? TECHNIQUE:? Non-contrast axial T1 spin echo, axial T2 fast spin echo, sagittal and axial FLAIR, coronal T2 fast spin echo, axial gradient echo, axial diffusion and ADC through the brain.? ? COMPARISON:? [facility], CT, CT STROKE, 08/27/2022, 12:43. ? FINDINGS:? Image quality:? Excellent.? ? CSF spaces:? Ventricles appear symmetric in size and shape.? Basal cisterns are patent.? No extra-axial fluid collections.? ? Brain:? No intracranial bleeds or mass effects.? There is cerebral volume loss for age.? There are moderate periventricular and deep white matter chronic small vessel ischemic changes.? Brainstem appears normal.? Diffusion-weighted images show no acute ischemic insults.? Old moderate left MCA distribution posterior temporal infarct with encephalomalacia.? Associated gliosis involves the left occipital deep white matter extending to the cortex.? Normal intravascular flow voids are present.? ? Skull and face:? Calvarial bone marrow is normal in signal.? Orbits are normal.? ? Sinuses:? Right maxillary sinus mucosal thickening. ? IMPRESSION:? ? 1. 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 ? 2. Age-related volume loss and moderate small vessel ischemic change. ? 3. No evidence acute stroke, hemorrhage, or mass. ? 4. Chronic right maxillary sinusitis.? ? Dictated by: [place] M.D. on 08/27/2022 at 16:05 ? ? Approved by: [place] M.D. on 08/27/2022 at 16:09?? ECG Data Attestation: I personally reviewed and interpreted this ECG as follows: Interpretation: Sinus bradycardia rate of 50 9p are 172 QRS 90 QTC 451. No acute ST elevation or depression noted. MDM Narrative Medical decision making narrative: This is a 76-year-old female who presents with concern for possible recurrent stroke. Patient was seen at [facility], I do not have these records but they report there was either calcification or bleed had repeat head CT likely to prove stability and was discharged home. Patient's symptoms are actually fairly consistent she is had some blurred vision and left leg weakness as well as headache the prior day. Patient has slightly blurred but no new loss of vision. Her left leg weakness is been longstanding she is not very clear about whether this is worsened or her normal. Her NIH today is 3 but may be baseline. Patient is on aspirin daily she is been taking her mother medications she is not particularly hypertensive a little bit elevated but not significantly so. Discussed with patient and family will try to obtain an MRI here in the emergency department if negative suspect that she has not an acute TIA or stroke as it has been greater than 24 hours if positive will contact hospitalist about keeping for stroke workup. Patient's MR is negative. Reviewed findings today with patient and family. Recommend follow up with Ophthalmology if symptoms are persisting. Discussed return precautions. Patient is to continue her home medications as prescribed. Discharge Plan Departure Patient Disposition: Home Clinical Impression: Blurred vision Activity Restrictions/Additional Instructions: Your MRI today is negative for stroke. Please follow-up with your physician for recheck, if you are having persistent blurred vision I would recommend follow up with Ophthalmology. Continue your home medications as prescribed. Please return for new or worsening symptoms, severe headaches, altered mental status, new chest pain, shortness of breath, new numbness weakness loss of sensation, speech changes, persistent vomiting or other new or concerning changes. Prescriptions: No Action cephalexin 500 mg capsule 500 mg PO BID Patient Comments: completed pravastatin 40 mg tablet 40 mg PO DAILY Jardiance 10 mg tablet 10 mg PO DAILY Janumet XR 100-1,000 mg tablet, ER multiphase 24 hr 1 tab PO DAILY levocetirizine [Xyzal] 5 mg tablet 5 mg PO DAILY levetiracetam 750 mg tablet 750 mg PO BID losartan 25 mg tablet 25 mg PO DAILY donepezil 5 mg tablet 5 mg PO DAILY aspirin [Adult Aspirin Regimen] 81 mg tablet,delayed release (DR/EC) 81 mg PO DAILY Referrals: Narayan Gibbs MD [Primary Care Provider] - Stand Alone Forms: Patient Portal/API
--- NOTE | 2022-08-27 14:06 | PC.NURSE ---
Pt was bending over to put something on the bottom shelf of a cabinet and when she stood up she suddenly felt dizzy, had head pressure above her left ear and lost vision in her left eye completely. Vision has come back somewhat, but is still blurry. 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 Pt also having increased weakness in left leg, some confusion and delayed speech per granddaughter.
--- NOTE | 2022-08-27 14:26 | DI.MRI.S_ITS ---
PROCEDURE: MR HEAD/BRAIN WO CON INDICATIONS: ? cva, blurred vision, increased leg weakness x 24 hours TECHNIQUE: Non-contrast axial T1 spin echo, axial T2 fast spin echo, sagittal and axial FLAIR, coronal T2 fast spin echo, axial gradient echo, axial diffusion and ADC through the brain. COMPARISON: [facility], CT, CT STROKE, 08/27/2022, 12:43. FINDINGS: Image quality: Excellent. CSF spaces: Ventricles appear symmetric in size and shape. Basal cisterns are patent. No extra-axial fluid collections. Brain: No intracranial bleeds or mass effects. There is cerebral volume loss for age. There are moderate periventricular and deep white matter chronic small vessel ischemic changes. Brainstem appears normal. Diffusion-weighted images show no acute ischemic insults. 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 Associated gliosis involves the left occipital deep white matter extending to the cortex. Normal intravascular flow voids are present. Skull and face: Calvarial bone marrow is normal in signal. Orbits are normal. Sinuses: Right maxillary sinus mucosal thickening. IMPRESSION: 1. 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 2. Age-related volume loss and moderate small vessel ischemic change. 3. No evidence acute stroke, hemorrhage, or mass. 4. Chronic right maxillary sinusitis. Dictated by: New Payne M.D. on 08/27/2022 at 16:05 Approved by: New Payne M.D. on 08/27/2022 at 16:09
[2022-08-27 15:43] LABS: COVID19 - ADMIT (NP swab/PCR) Negative (Negative)
[2022-08-27 16:27] LABS: UR Morphine/Opiate cutoff 300 Negative (Negative); Ur Creatinine Normal (Normal); Ur Specific Gravity Normal (Normal); Urine Amphetamines Negative (Negative); Urine Barbiturates Negative (Negative); Urine Benzodiazepines Negative (Negative); Urine Cocaine Negative (Negative); Urine MDMA Negative (Negative); Urine Methadone Negative (Negative); Urine Methamphetamines Negative (Negative); Urine Oxycodone Negative (Negative); Urine Phencyclidine Negative (Negative); Urine Tetrahydrocannabinol Negative (Negative); Urine Tricyclic Antidepressant Negative (Negative); Urine pH Normal (Normal)
[2022-08-27 16:40] LABS: Bacteria Urine None Seen; Culture Indicated Urine Cult Not Indicated; RBC Urine None Seen (0-5/HPF); Squamous Epithelial Cell Urine None Seen (0-5/HPF); WBC Urine None Seen (0-5/HPF)
== END 2022-08-27 17:17 | disposition home or self-care (01) ==
PROVIDERS: Emergency Provider Emergency Medicine; Family Provider Family Medicine; PCP Family Medicine
DX: H53.8 Other visual disturbances (principal); R53.1 Weakness; R51.9 Headache, unspecified; R29.703 NIHSS score 3; Z79.899 Other long term (current) drug therapy; Z20.822 Contact with and (suspected) exposure to COVID-19
CPT/HCPCS: 36415; 70450; 70496; 70498; 70551; 71045; 80053; 80305; 81003; 81015; 82550; 83735; 84484; 85025; 85610; 85730; 87635; 93005; 99284; 99285; C9803; Q9967